=== PATIENT | male | born 1950 | race Caucasian/White ===

== ENCOUNTER 2021-10-22 16:00 | Outpatient (AMB) | payer MEDICARE, OTHER, SELFPAY ==
[2021-10-22 16:15] VITALS: BMI 18.3
--- NOTE | 2021-10-22 16:15 | PR.OPPALCARP ---
Vital Signs 10/22/21 16:15 Height 1.88 m Height Method Stated Weight 64.864 kg Weight Measurement Method Stated by Patient BMI 18.3 OP Palliative Care Referral source Referral Source: Inital Visit (10/22-10/24/21) Changes in weight Weight Loss: Yes Usual Body Weight: 74.389 kg Usual Body weight time frame: 2 weeks ago % change: 13 Nutritional Assessment Total kcal: 2,500 Based on kcal/k Nutritional Assessment additional comments: Appointment Date: 10/22/21, Time: ?4:15 pm. (FU on 10/24/21 for swallow eval with [employer] RECOVERY WORKER and on 10/27 and 10/28 with [facility] for TF formula supply approval and provision) Appointment Type: Palliative Care Team referral- Initial Nutrition Assessment over the phone with patient?s Jaylin ?? 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 Iron Deficiency anemia. Drug abuse with methamphetamines. Treatment and procedure: IV chemo and Radiation. Medications include ?Flomax, Methadone, Morphine, Omeprazole Current nutrition concern: ?Dysphagia s/p PEG, Significant weight loss, N/V and Constipation. Current stated Height: 6? 2?, stated current weight: 143 lbs. Current BMI: 18.3 kg/mm, reflect underweight status. ?Usual weight before chemo: 225 lbs before dx. 164 lb (10/04), 154 lb (10/09) and 148 (10/16). Noted significant weight loss of 21 lb in 2 weeks. Patient at high risk for protein calorie malnutrition. ??Based on current height status, Idea Body Weight range: 190lbs. +/- 10% (171-209 lbs.). Patient?s reports silver [place] can only tolerate small volume up to half cup of soup a day orally with nausea, vomiting and dysphagia. He may try Ensure Max, Pedialyte and water in small amount. ??PEG was placed on 10/20/21, [employer] RECOVERY WORKER swallow evaluation with MBSS with video esophagram completed on 10/24/21.? ?Tube feeding formula and supplies were approved and will be provided by [facility] ([employer]) started 10/28/21. Recommended TF regimen via [facility]: Isosource 1.5 kcal (4 cartons per day with a goal of 7 cartons per day) with suggested water flush 90-120 ml before and after each TF and with medication passes. Nutrition Diagnosis and Problems: NC 3.1- Underweight-current BMI 18.3 kg/mm NC 3.2 Unintended weight loss, significant weight loss of 21 lbs x2 weeks. NI 5.3 Inadequate/suboptimal Protein-Energy Intake- less than 10% of normal intake. NC 1.1 Swallowing difficulty R/T dysphagia and S/P PEG placement NC 1.4 Altered GI function-Esophageal/stomach CA Nutrition Intervention and Recommendation: 1.? Provide main nutrition and hydration needs via GT bolus via syringe ?with TF fomula of Isosource 1.5 with 4 cartons per day to goal of 7 carton per day (1750 ml, 2625 kcal, 119 gm protein 1337 ml free water and 28 gm fiber). 2.? Encourage adequate fluid intake with additional water flush of 90-120 ml before and after each Tf and minimum 30 ml water flush with medication passes. 3.? Provide oral diet (Full liquid or soft) and eat very small amount as tolerated for 4.? Maintain physical activities as tolerated 5.? Dietitian to monitor medical progress, GI function, Oral diet intake, TF tolerance, Labs and weight status. Proteins Protein Additional Comment: 98-130 gm (1.5-2.0 gm/kg ABW) Fluid Intake Total Fluid ml/d: 2,500 Total Fluid ml/k Food intake Food intake: Less than usual Current intake: Low Intake Feeding difficulties: Peg, Dysphagia and Chewing Difficulties (Lost most teeth ) Need [employer]OV[employer] WORKER Referral: Yes *CWC Office Visit complete CWC Offive Visit Complete CWC Visit Complete?: Yes
--- NOTE | 2021-10-23 09:20 | AM.PHNO ---
Nursing Note Was made aware by DASHAWN De Jesus, that the patient is needing an assessment from the Speech Language Pathologist. The PIPE AND TEST SUPERVISOR states that the patient needs an order for MBSS with video esophagram (not barium swallow) in order to have his formula for his PEG tube through [facility]. Called and spoke with Anastasia from Dr. Figueroa?s office, who stated that he was going to order the exam and she was given the correct exam to be ordered. Anastasia then called back later to make me aware that she had spoken to the radiology and had faxed over the order. Anastasia stated that she was going to reach out to the patient to make him aware. Called patient?s , Jaylin, at 1600 to check in on how her and the patient were doing. Jaylin stated that they were doing okay even with the set back with not getting the formula right away. She was told by the RD from [facility] that there is a formula at [facility] that she would be able to buy and supplement while they wait for the insurance to process the formula from [facility]. Made Jaylin aware that she can call with any issue or concerns that she or the patient may have, Jaylin was appreciative of that. Made Jaylin aware that I will still be calling in 2 weeks to check in. Transferred Jaylin to DASHAWN Stovall, at 1614 so that Sia would be able to provide nutritional counseling. *CWC Office Visit complete CWC Offive Visit Complete CWC Visit Complete?: Yes
== END 2021-10-22 16:40 | disposition home or self-care (01) ==
LOC: HODCWC 16:16
PROVIDERS: PCP Internal Medicine; Referring Provider Internal Medicine; Visit Provider Radiology Therapeutic Radiology
DX: Z71.89 Other specified counseling (principal)